=== PATIENT | male | born 1955 | race Caucasian/White ===

== ENCOUNTER 2020-01-19 23:57 | Emergency (ER) | payer OTHER, MEDICAID, SELFPAY ==
[2020-01-20] VITALS (27 sets, daily range): BP systolic 141–165; BP diastolic 78–120; PULSE 85–96; RESP 14–33; TEMP 37.1; O2SAT 88–97; BMI 32.5
--- NOTE | 2020-01-20 00:17 | DI.RAD.S_ITS ---
PROCEDURE: XR CHEST 1V INDICATIONS: Dyspnea TECHNIQUE: One view of the chest was acquired. COMPARISON: [facility], , CHEST FOR PICC PLACEMENT, 06/18/2015, 19:09. FINDINGS: Surgical changes and devices: Redemonstration of posterior fusion hardware of the mid thoracic spine. Lungs and pleura: Diffuse interstitial prominence as before. There is a large consolidation involving the right midlung zone. Small right pleural effusion. Mild streaky bibasilar opacities. No pneumothorax. Mediastinum: The cardiomediastinal contours remain stable. Heart size is normal. Bones and chest wall: No suspicious bony lesions. Overlying soft tissues appear unremarkable. 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 IMPRESSION: Large right midlung zone consolidation likely related to pneumonia. Small right pleural effusion. Recommend follow up chest radiograph 4-6 weeks after treatment to document resolution of findings and/or return to baseline examination. Dictated by: Gregory Hardwick M.D. on 01/20/2020 at 7:36 Approved by: Gregory Hardwick M.D. on 01/20/2020 at 7:39
[2020-01-20] MEDS: ALBUTEROL HFA 60 PUFF/8 GM INH INH (00:36)
--- NOTE | 2020-01-20 00:39 | ED.SOB ---
HPI - SOB/Dyspnea General Chief Complaint: Shortness of Breath/Dyspnea Stated Complaint: shortness of breath approx 2 wks/yellow mucus Time Seen by Provider: 01/20/20 00:04 Source: patient History of Present Illness HPI Narrative: Patient complains slow onset of dyspnea past 2 weeks with productive yellow cough. Denies denies any chest pain. Patient states his leg edema bilaterally is at baseline. Denies any history of CHF. Has history of COPD. No longer smokes. Is not on oxygen at home. Home breathing treatments not helping. Denies any sick contacts. Does not have a provider locally. Patient states history of thyroid problems. 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 Complaint: shortness of breath and cough Related Data Home Medications Medication Instructions Recorded Confirmed [HEPATITIC SLOTHOPINE] #0 10/17/17 Previous Rx's Medication Instructions Recorded hydroxyzine HCl 0 mg PO Q4HP PRN #10 tab 02/23/16 lisinopril 40 mg PO QDAY #30 tab 09/29/16 zolpidem 10 mg PO HS PRN #30 tab 09/29/16 levothyroxine [Synthroid] 75 mcg PO QAM #30 tab 10/20/16 levothyroxine [Synthroid] 150 mcg PO QAM #30 tab 10/20/16 liothyronine [Cytomel] 25 mcg PO QAM #30 tab 10/20/16 permethrin 1 loi TOPICAL X1 #60 gm 10/17/17 Allergies Allergy/AdvReac Type Severity Reaction Status Date / Time No Known Drug Allergies Allergy Verified 01/20/20 04:30 Review of Systems Review of Systems Narrative: GENERAL: Denies chills, fatigue, malaise, fever, sweats. HEENT: Denies sinus pain, ear pain, sore throat, difficulty swallowing, dizziness. RESPIRATORY: Complains of productive cough/dyspnea/wheezing CARDIOVASCULAR: Denies chest pain, palpitations, orthopnea, edema, GASTROINTESTINAL: Denies nausea, vomiting, abdominal pain, diarrhea, constipation, melena. : Denies dysuria, frequency, incontinence, hematuria, urinary retention. MUSCULOSKELETAL: denies weakness, joint pain, or bony pain SKIN: Denies rash, skin lesions, or other NEUROLOGIC: Denies weakness, headache, numbness, change in speech, confusion, seizures, incoordination. PSYCHIATRIC: No concerning psychosocial issues. ROS Unobtainable: All systems reviewed & are unremarkable except as noted in HPI and below Exam Narrative Exam Narrative: GENERAL: patient appears stated age. Well-nourished, well-developed patient, in no distress, not toxic HEAD: Atraumatic. Normocephalic. EYES: Pupils equal round and reactive. Extraocular motions intact. No scleral icterus. No injection or drainage. ENT: Nose without bleeding, purulent drainage. Throat without erythema, tonsillar hypertrophy or exudate. Airway patent. NECK: Trachea midline. Non tender CARDIOVASCULAR: Regular rate and rhythm without murmurs, gallops, or rubs. RESPIRATORY: Speaks nearly full sentences, has bilateral basilar wheezes and rhonchi, has productive cough GASTROINTESTINAL: Abdomen soft, non-tender, nondistended. EXTREMITIES: No edema or joint tenderness. BACK: Nontender without deformity or crepitance. No flank tenderness. NEURO: AOx3. SKIN: No rash or erythema of visible areas Initial Vital Signs Initial Vital Signs: Vital Signs Pulse Rate 91 H 01/20/20 00:17 Respiratory Rate 16 01/20/20 00:17 Pulse Oximetry 96 01/20/20 00:17 Course Course Course Narrative: No new complaints. Feeling better after inhaler Orders Ordered: ED Orders 01/20/20 00:17 XR chest 1V Stat 01/20/20 00:22 EKG-12 Lead Stat 01/20/20 00:24 Complete Blood Count AUTO DIFF Stat Comprehensive Metabolic Panel Stat NT-proBNP (BNP-Adult 18+) Stat Partial Thromboplastin Time Stat Procalcitonin Stat Prothrombin Time INR Stat Sputum Culture Stat Thyroid Stimulating Hormone Stat Troponin & CK Cardiac Panel Stat 01/20/20 00:57 Blood Culture Stat 01/20/20 01:00 Urinalysis and Microscopic Stat 01/20/20 01:53 CT chest wo con Stat Discontinued Medications Albuterol (Ventolin Hfa) 4 puff INH NOW ONE Stop: 01/20/20 00:29 Last Admin: 01/20/20 00:36 Dose: 4 puff Documented by: IQRA Sodium Chloride (Normal Saline 0.9%) 1,000 mls @ 1,000 mls/hr IV BOLUS PRN PRN Reason: Fluid replacement Methylprednisolone (Solu-Medrol 125 Mg Vial) 125 mg IV NOW ONE Stop: 01/20/20 04:30 Last Admin: 01/20/20 04:34 Dose: 125 mg Documented by: JOYCE Morphine Sulfate (Morphine) 4 mg IV NOW ONE Stop: 01/20/20 04:22 Last Admin: 01/20/20 04:35 Dose: 4 mg Documented by: JOYCE Ondansetron HCl (Zofran) 4 mg IV NOW ONE Stop: 01/20/20 04:22 Last Admin: 01/20/20 04:34 Dose: 4 mg Documented by: JOYCE Reevaluation(s) Reevaluation #1: Resting comfortably, sleeping, awakens easily to review results Time: 03:09 Consultations Consultation #1: Spoke with Dr. Gaurang Huynh, [facility] internal medicine, at this time they are at capacity for admissions. Patient is hemodynamically stable and would be appropriate to admit here for COPD exacerbation, in the morning can do telemedicine conference call with Pulmonary group, patient would need bronchoscopy with biopsy which they can arrange with our hospitalist to transfer tomorrow Time: 04:17 Consultation #2: Spoke with our hospitalist, TYING [employer] MACHINE OPERATOR Una Swanson, my discussion with Dr. Huynh, she discharge patient to go [facility], I will make phone calls to their facility and she will accept patient if they are unable to provide services Time: 04:18 Consultation #3: Spoke with [facility], hospitalist, Dr. Corea, he will gladly accept the patient, not need to contact Oncology tonight, he is aware of the TSH level we found tonight Time: 04:29 Vital Signs Vital signs: Vital Signs - 8 hr 01/20/20 00:17 01/20/20 00:20 01/20/20 00:30 Temperature Pulse Rate 91 H 91 H 96 H Respiratory Rate 16 29 H 21 Blood Pressure 163/120 H Pulse Oximetry 96 96 96 01/20/20 00:34 01/20/20 00:37 01/20/20 00:40 Temperature 98.8 F Pulse Rate 96 H 90 90 Respiratory Rate 24 20 14 Blood Pressure 163/120 H Pulse Oximetry 97 95 95 01/20/20 00:50 01/20/20 01:00 01/20/20 01:10 Temperature Pulse Rate 88 95 H 87 Respiratory Rate 18 23 20 Blood Pressure Pulse Oximetry 93 95 94 01/20/20 01:15 01/20/20 01:30 01/20/20 01:45 Temperature Pulse Rate 91 H 86 85 Respiratory Rate 28 H 18 22 Blood Pressure Pulse Oximetry 96 94 92 01/20/20 02:00 01/20/20 03:08 01/20/20 03:10 Temperature Pulse Rate 87 88 86 Respiratory Rate 18 23 14 Blood Pressure 165/97 H Pulse Oximetry 90 L 01/20/20 03:20 01/20/20 03:30 01/20/20 03:40 Temperature Pulse Rate 92 H 91 H 91 H Respiratory Rate 33 H 24 24 Blood Pressure 159/96 H Pulse Oximetry 01/20/20 03:50 01/20/20 04:00 01/20/20 04:10 Temperature Pulse Rate 91 H 91 H 92 H Respiratory Rate 29 H 21 Blood Pressure 153/87 H Pulse Oximetry 01/20/20 04:20 01/20/20 04:30 01/20/20 04:40 Temperature Pulse Rate 92 H 90 93 H Respiratory Rate Blood Pressure 149/85 H Pulse Oximetry 94 92 91 01/20/20 04:50 01/20/20 05:00 01/20/20 05:10 Temperature Pulse Rate 89 88 90 Respiratory Rate Blood Pressure 141/78 H Pulse Oximetry 89 L 88 L 89 L MDM - SOB/Dyspnea Differential Diagnosis Differential diagnosis: Likely acute exacerbation of chronic obstructive airways disease, congestive heart failure and community acquired pneumonia Lab Data Attestation: I reviewed the patient's lab results. Result diagrams: 01/20/20 00:24 01/20/20 00:24 Labs: Lab Results 01/20/20 01/20/20 01/20/20 Range/Units 00:23 00:24 00:24 WBC 9.3 (4.5-11.0) X10^3/uL RBC 3.38 L (4.5-5.9) X10^6/uL Hgb 8.9 L (13.5-17.5) g/dL Hct 26.9 L (41-53) % MCV 79.6 L (80-100) fL MCH 26.4 (26-34) PG MCHC 33.2 (30-36) % RDW 19.8 H (11.6-14.8) % Plt Count 328 (150-400) X10^3/uL Neut % (Auto) 68.4 (50-75) % Lymph % (Auto) 16.6 L (25-40) % Bland % (Auto) 11.0 (3-14) % Eos % (Auto) 2.9 (2-4) % Baso % (Auto) 1.1 (0-2) % Neut # (Auto) 6400 (0363-2052) /uL Lymph # (Auto) 1500 (1939-9237) /uL Bland # (Auto) 1000 H (0-900) /uL Eos # (Auto) 300 (0-450) /uL Baso # (Auto) 100 (0-100) /uL PT 11.7 (10.1-12.7) SECONDS INR 1.0 (0.9-1.3) APTT 33 (26.4-36.2) SECONDS Sodium (137-145) mmol/L Potassium (3.4-5.1) mmol/L Chloride (98-107) mmol/L Carbon Dioxide (22-32) mmol/L BUN (9-20) mg/dL Creatinine (0.66-1.25) mg/dL Estimated GFR (>60) mL/min BUN/Creatinine Ratio (6-22) Glucose (80-110) mg/dL Calcium (8.4-10.2) mg/dL Total Bilirubin (0.2-1.3) mg/dL AST (17-59) IU/L ALT (<50) IU/L Alkaline Phosphatase (38-126) U/L Total Creatine Kinase (55-170) U/L CK-MB (CK-2) CK-MB (CK-2) Rel Index Troponin I (0.01-0.034) ng/mL NT-Pro-B Natriuret Pep (<125) pg/mL Total Protein (6.3-8.2) g/dL Albumin (3.5-5.0) g/dL Globulin (1.7-4.1) g/dL Albumin/Globulin Ratio (1.0-2.8) Procalcitonin (<0.5) ng/mL TSH (0.47-4.68) uIU/mL Urine Color Urine Appearance Urine pH (4.5-8.0) Ur Specific [place] (1.000-1.035) Urine Protein (Negative) Urine Glucose (UA) (Negative) g/dL Urine Ketones (NEGATIVE) Urine Occult Blood (Negative) Urine Nitrate (Negative) Urine Bilirubin (NEGATIVE) Urine Urobilinogen (0.2) E.U./dL Ur Leukocyte Esterase (NEGATIVE) Urine RBC (0-5/HPF) Urine WBC (0-5/HPF) Urine Bacteria (None) Ur Culture Indicated? Micro UA Comment COVID-19 PCR Negative (Negative) 01/20/20 01/20/20 01/20/20 Range/Units 00:24 00:24 00:24 WBC (4.5-11.0) X10^3/uL RBC (4.5-5.9) X10^6/uL Hgb (13.5-17.5) g/dL Hct (41-53) % MCV (80-100) fL MCH (26-34) PG MCHC (30-36) % RDW (11.6-14.8) % Plt Count (150-400) X10^3/uL Neut % (Auto) (50-75) % Lymph % (Auto) (25-40) % Bland % (Auto) (3-14) % Eos % (Auto) (2-4) % Baso % (Auto) (0-2) % Neut # (Auto) (7087-7710) /uL Lymph # (Auto) (6767-0671) /uL Bland # (Auto) (0-900) /uL Eos # (Auto) (0-450) /uL Baso # (Auto) (0-100) /uL PT (10.1-12.7) SECONDS INR (0.9-1.3) APTT (26.4-36.2) SECONDS Sodium 133 L (137-145) mmol/L Potassium 4.4 (3.4-5.1) mmol/L Chloride 98 (98-107) mmol/L Carbon Dioxide 24 (22-32) mmol/L BUN 23 H (9-20) mg/dL Creatinine 1.15 (0.66-1.25) mg/dL Estimated GFR > 60.0 (>60) mL/min BUN/Creatinine Ratio 20.0 (6-22) Glucose 107 (80-110) mg/dL Calcium 9.0 (8.4-10.2) mg/dL Total Bilirubin 0.4 (0.2-1.3) mg/dL AST 46 (17-59) IU/L ALT 22 (<50) IU/L Alkaline Phosphatase 105 (38-126) U/L Total Creatine Kinase 96 (55-170) U/L CK-MB (CK-2) TNP CK-MB (CK-2) Rel Index TNP Troponin I < 0.012 (0.01-0.034) ng/mL NT-Pro-B Natriuret Pep 378 H (<125) pg/mL Total Protein 8.5 H (6.3-8.2) g/dL Albumin 4.0 (3.5-5.0) g/dL Globulin 4.5 H (1.7-4.1) g/dL Albumin/Globulin Ratio 0.9 L (1.0-2.8) Procalcitonin 0.08 (<0.5) ng/mL TSH (0.47-4.68) uIU/mL Urine Color Urine Appearance Urine pH (4.5-8.0) Ur Specific [place] (1.000-1.035) Urine Protein (Negative) Urine Glucose (UA) (Negative) g/dL Urine Ketones (NEGATIVE) Urine Occult Blood (Negative) Urine Nitrate (Negative) Urine Bilirubin (NEGATIVE) Urine Urobilinogen (0.2) E.U./dL Ur Leukocyte Esterase (NEGATIVE) Urine RBC (0-5/HPF) Urine WBC (0-5/HPF) Urine Bacteria (None) Ur Culture Indicated? Micro UA Comment COVID-19 PCR (Negative) 01/20/20 01/20/20 Range/Units 00:24 01:00 WBC (4.5-11.0) X10^3/uL RBC (4.5-5.9) X10^6/uL Hgb (13.5-17.5) g/dL Hct (41-53) % MCV (80-100) fL MCH (26-34) PG MCHC (30-36) % RDW (11.6-14.8) % Plt Count (150-400) X10^3/uL Neut % (Auto) (50-75) % Lymph % (Auto) (25-40) % Bland % (Auto) (3-14) % Eos % (Auto) (2-4) % Baso % (Auto) (0-2) % Neut # (Auto) (7337-0326) /uL Lymph # (Auto) (0773-7922) /uL Bland # (Auto) (0-900) /uL Eos # (Auto) (0-450) /uL Baso # (Auto) (0-100) /uL PT (10.1-12.7) SECONDS INR (0.9-1.3) APTT (26.4-36.2) SECONDS Sodium (137-145) mmol/L Potassium (3.4-5.1) mmol/L Chloride (98-107) mmol/L Carbon Dioxide (22-32) mmol/L BUN (9-20) mg/dL Creatinine (0.66-1.25) mg/dL Estimated GFR (>60) mL/min BUN/Creatinine Ratio (6-22) Glucose (80-110) mg/dL Calcium (8.4-10.2) mg/dL Total Bilirubin (0.2-1.3) mg/dL AST (17-59) IU/L ALT (<50) IU/L Alkaline Phosphatase (38-126) U/L Total Creatine Kinase (55-170) U/L CK-MB (CK-2) CK-MB (CK-2) Rel Index Troponin I (0.01-0.034) ng/mL NT-Pro-B Natriuret Pep (<125) pg/mL Total Protein (6.3-8.2) g/dL Albumin (3.5-5.0) g/dL Globulin (1.7-4.1) g/dL Albumin/Globulin Ratio (1.0-2.8) Procalcitonin (<0.5) ng/mL TSH 68.5 H (0.47-4.68) uIU/mL Urine Color Yellow Urine Appearance Clear Urine pH 6.5 (4.5-8.0) Ur Specific [place] <=1.005 (1.000-1.035) Urine Protein Negative (Negative) Urine Glucose (UA) Negative (Negative) g/dL Urine Ketones Negative (NEGATIVE) Urine Occult Blood Negative (Negative) Urine Nitrate Negative (Negative) Urine Bilirubin Negative (NEGATIVE) Urine Urobilinogen 0.2 (0.2) E.U./dL Ur Leukocyte Esterase Negative (NEGATIVE) Urine RBC None seen (0-5/HPF) Urine WBC None seen (0-5/HPF) Urine Bacteria None seen (None) Ur Culture Indicated? Cult not indicated Micro UA Comment Microscopic normal COVID-19 PCR (Negative) Imaging Data Chest x-ray: Attestation: I personally reviewed and interpreted this imaging study as follows: My Impression: Right hilar mass CT scan - chest: Radiologist's Impression: CT scan chest without contrast results faxed to the department, large right perihilar mass like density. 9 x 10 x 6 cm Consider malignancy. Recommend close follow-up ECG Data Attestation: I personally reviewed and interpreted this ECG as follows: Interpretation: Sinus rhythm, P waves are noted, ventricular rate 90, no ST elevation or depression MDM Narrative Medical decision making narrative: COPD exacerbation with new mass compared to CT scan and x-ray in 2014. Patient will be transferred to [facility], I spoke with hospitalist here, Gissel Swanson, recommend patient be transferred. I spoke with the household assistant a [facility], she states patient's with new onset usually gets transferred to [facility] from their facility Discharge Plan Departure Patient Disposition: [facility] Clinical Impression: Lung mass, Acute exacerbation of chronic obstructive pulmonary disease Discharge Date/Time: 01/20/20 05:23 Prescriptions: No Action hydroxyzine HCl 25 MG tablet 0 mg PO Q4HP PRNQty: 10 RF: 0 lisinopril 40 MG tablet 40 mg PO QDAY Qty: 30 RF: 0 zolpidem 10 MG tablet 10 mg PO HS PRNQty: 30 RF: 0 liothyronine [Cytomel] 25 MCG tablet 25 mcg PO QAM Qty: 30 RF: 0 levothyroxine [Synthroid] 75 MCG tablet 75 mcg PO QAM Qty: 30 RF: 0 levothyroxine [Synthroid] 150 MCG tablet 150 mcg PO QAM Qty: 30 RF: 0 [HEPATITIC SLOTHOPINE] Qty: 0 RF: 0 permethrin 5 % cream 1 loi Topical X1 Qty: 60 RF: 0 Referrals: Ken Campa MD [Primary Care Provider] -
[2020-01-20 00:52] LABS: Add Manual Diff / Slide Review NO; Basophils Absolute Auto 100 /uL (0-100); Basophils Percent Auto 1.1 % (0-2); Eosinophils Absolute Auto 300 /uL (0-450); Eosinophils Percent Auto 2.9 % (2-4); Hematocrit 26.9 % (41-53); Hemoglobin 8.9 g/dL (13.5-17.5); Lymphocytes Absolute Auto 1500 /uL (1100-4500); Lymphocytes Percent Auto 16.6 % (25-40); Mean Corpuscular HGB Conc 33.2 % (30-36); Mean Corpuscular Hemoglobin 26.4 PG (26-34); Mean Corpuscular Volume 79.6 fL (80-100); Monocytes Absolute Auto 1000 /uL (0-900); Neutrophils Absolute Auto 6400 /uL (1500-7000); Neutrophils Percent Auto 68.4 % (50-75); Platelet Count 328 X10^3/uL (150-400); Prothrombin Time 11.7 SECONDS (10.1-12.7); Red Blood Cell Count 3.38 X10^6/uL (4.5-5.9); Red Cell Distribution Width 19.8 % (11.6-14.8); White Blood Cell Count 9.3 X10^3/uL (4.5-11.0)
[2020-01-20 00:54] LABS: PTT Partial Thromboplastin Tim 33 SECONDS (26.4-36.2)
[2020-01-20 00:56] LABS: Alanine Aminotransferase 22 IU/L (<50); Albumin Globulin Ratio 0.9 (1.0-2.8); Alkaline Phosphatase 105 U/L (38-126); Aspartate Aminotransferase 46 IU/L (17-59); Bilirubin Total 0.4 mg/dL (0.2-1.3); Blood Urea Nitrogen 23 mg/dL (9-20); Carbon Dioxide 24 mmol/L (22-32); Chloride 98 mmol/L (98-107); Creatine Kinase 96 U/L (55-170); Estimated Glomerular Filt Rate > 60.0 mL/min (>60); Globulin 4.5 g/dL (1.7-4.1); Glucose 107 mg/dL (80-110); HEMOLYSIS 48 (0-50); Potassium 4.4 mmol/L (3.4-5.1); Sodium 133 mmol/L (137-145); Total Protein 8.5 g/dL (6.3-8.2)
[2020-01-20 01:05] LABS: NT-proBNP (BNP-Adult 18+) 378 pg/mL (<125)
[2020-01-20 01:08] LABS: Troponin I < 0.012 ng/mL (0.01-0.034)
[2020-01-20 01:13] LABS: Procalcitonin 0.08 ng/mL (<0.5)
[2020-01-20 01:27] LABS: Thyroid Stimulating Hormone 68.5 uIU/mL (0.47-4.68)
[2020-01-20 01:47] LABS: COVID19 -Nasal RAPID Negative (Negative)
--- NOTE | 2020-01-20 01:53 | DI.CT.S_ITS ---
PROCEDURE: CT CHEST WO CON INDICATIONS: Dyspnea TECHNIQUE: Noncontrast 5 mm thick sections acquired from the pulmonary apices to the posterior costophrenic angles. 1 mm lung window, 5 mm thick coronal and sagittal and 7 mm axial MIP reformats were then acquired. For radiation dose reduction, the following was used: automated exposure control, adjustment of mA and/or kV according to patient size. COMPARISON: [facility], CT, CHEST/ABD/PEL WITH CONTRAST, 06/18/2015, 15:09. FINDINGS: Image quality: Excellent. Lungs and pleura: No evidence of pneumonia, nor edema. Mild right basilar atelectasis versus pneumonia. There is a large right upper lobe mass in the perihilar location measuring 94 mm, extending to the right hilum. No pleural effusions or pneumothorax. Central and peripheral airways are patent and normal in caliber. Mediastinum: Heart size is enlarged. There is calcification of the coronary vasculature. No pericardial effusion. No mediastinal adenopathy by size criteria. Thoracic aorta and central pulmonary arteries are normal in size. Esophagus is normal in caliber. Large hiatal hernia. Bones and chest wall: No suspicious bony lesions. No vertebral body compression fractures. No axillary or supraclavicular adenopathy by size criteria. Thyroid gland is within normal limits. Abdomen: Visualized upper abdominal solid organs and bowel loops appear normal in the absence of contrast. IMPRESSION: 1. Large right upper lobe mass, consistent with malignancy. 2. Large hiatal hernia. 3. Right basilar atelectasis versus pneumonia. 4. Concordant with preliminary interpretation. Dictated by: Galina Newton M.D. on 01/20/2020 at 8:30 Approved by: Galina Newton M.D. on 01/20/2020 at 8:32
[2020-01-20 03:09] LABS: Bacteria Urine None Seen; RBC Urine None Seen (0-5/HPF); WBC Urine None Seen (0-5/HPF)
[2020-01-20 03:10] LABS: Appearance Urine UA CLEAR; Bilirubin Urine UA NEGATIVE (NEGATIVE); Color Urine UA YELLOW; Glucose Urine UA NEGATIVE (Negative); Ketones Urine UA NEGATIVE (NEGATIVE); Leukocyte Esterase Urine UA NEGATIVE (NEGATIVE); Nitrite Urine UA NEGATIVE (Negative); Occult Blood Urine UA NEGATIVE (Negative); Protein Urine UA NEGATIVE (Negative); Specific Gravity Urine UA <=1.005 (1.000-1.035); Urobilinogen Urine UA 0.2 E.U./dL (0.2); pH Urine UA 6.5 (4.5-8.0)
[2020-01-20 03:11] LABS: Culture Indicated Urine Cult Not Indicated; Urine Comments Microscopic Normal
--- NOTE | 2020-01-20 03:25 | PC.NURSE ---
Pt given snack with OK from Dr Lobato
--- NOTE | 2020-01-20 04:27 | PC.NURSE ---
Pt c/o PEDRO pain 05/01, Dr Lobato notified, orders received for morphine and zofran.
[2020-01-20] MEDS: methylPREDNISolone 125 MG/2 ML VIAL IV (04:34)
[2020-01-20] MEDS: ONDANSETRON 4 MG/2 ML INJ IV (04:34)
[2020-01-20] MEDS: MORPHINE 4 MG/ML INJ IV (04:35)
== END 2020-01-20 05:23 | disposition short-term general hospital (02) ==
PROVIDERS: Emergency Provider Emergency Medicine; Family Provider Internal Medicine; PCP Family Medicine
DX: J44.1 Chronic obstructive pulmonary disease with (acute) exacerbation (principal); R91.8 Other nonspecific abnormal finding of lung field
CPT/HCPCS: 36415; 71045; 71250; 80053; 81001; 82550; 83880; 84145; 84443; 84484; 85025; 85610; 85730; 87040; 87070; 87205; 87635; 93005; 94640; 96374; 96375; 99285; J2270; J2405; J2930

== ENCOUNTER 2022-01-23 03:00 | Emergency (ER) | payer OTHER, MEDICAID, SELFPAY ==
[2022-01-23] VITALS (14 sets, daily range): BP systolic 122–209; BP diastolic 86–108; PULSE 59–69; RESP 11–23; TEMP 36.2–36.3; O2SAT 92–99
--- NOTE | 2022-01-23 03:25 | DI.CT.S_ITS ---
PROCEDURE: CT HEAD/BRAIN WO CON INDICATIONS: falling asleep TECHNIQUE: Noncontrast 4.5 mm thick angled axial sections acquired from the foramen magnum to the vertex, with coronal and sagittal reformats. For radiation dose reduction, the following was used: automated exposure control, adjustment of mA and/or kV according to patient size. COMPARISON: [facility], CT, HEAD WITHOUT CONTRAST, 06/18/2015, 15:09. FINDINGS: Image quality: Excellent. CSF spaces: Basal cisterns are patent. No extra-axial fluid collections. The ventricles are symmetric in size and shape. Brain: No intracranial bleeds or masses. 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 There is cerebral volume loss for age, with resultant ventricular and sulcal prominence. There are periventricular and deep white matter chronic small vessel ischemic changes. There is intracranial internal carotid artery atherosclerosis. Skull and face: Calvarium and visualized facial bones appear intact, without suspicious lesions. Sinuses: Visualized sinuses and mastoids are clear. IMPRESSION: 1. No CT evidence of acute intracranial abnormalities. 2. 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 Mild age related atrophy and mild white matter chronic small vessel ischemic changes. No discrepancies from preliminary reading. Dictated by: Kota Penaloza M.D. on 01/23/2022 at 7:39 Approved by: Kota Penaloza M.D. on 01/23/2022 at 7:40
--- NOTE | 2022-01-23 03:27 | ED_ITS ---
HPI - Altered Mental Status <Chang Florian DO - Last Filed: 01/23/22 19:04> General Chief Complaint: Shortness of Breath/Dyspnea Stated Complaint: falling asleep Time Seen by Provider: 01/23/22 03:10 Source: patient and EMS Mode of arrival: EMS History of Present Illness HPI narrative: 66-year-old male smoker and former IV drug abuser with history of hypertension, hepatitis-C presents by EMS for evaluation of altered mental status. He was at a slot machine at the [facility] and was found to be falling asleep and security activated EMS stating that he was in and out of consciousness. Patient denies any use of illicits other than marijuana and states that it has been quite sometime since he has used anything stronger. EMS reports a rather impressive response to Narcan and also ammonia salts. Patient states that his blood pressures have been elevated and he has not been taking his medication for quite some time. He denies any headache or blurred vision but does state that he gets some tingling in his left arm on occasion. He denies any chest pain and states that he has been short of breath for a while. She has a very poor historian and does not participate in the history or exam very well or willingly. He denies any trauma and has no neck pain. Related Data Home Medications Medication Instructions Recorded Confirmed [HEPATITIC SLOTHOPINE] ##0 10/17/17 Previous Rx's Medication Instructions Recorded hydroxyzine HCl 25 mg tablet 0 mg PO Q4HP PRN #10 tabs 02/23/16 lisinopril 40 mg tablet 40 mg PO QDAY #30 tabs 09/29/16 zolpidem 10 mg tablet 10 mg PO HS PRN #30 tabs 09/29/16 levothyroxine 150 mcg tablet 150 mcg PO QAM #30 tabs 10/20/16 (Synthroid) levothyroxine 75 mcg tablet 75 mcg PO QAM #30 tabs 10/20/16 (Synthroid) liothyronine 25 mcg tablet 25 mcg PO QAM #30 tabs 10/20/16 (Cytomel) permethrin 5 % topical cream 1 loi topical X1 ##60 10/17/17 cephalexin 500 mg capsule 500 mg PO TID #21 caps 01/23/22 Allergies Allergy/AdvReac Type Severity Reaction Status Date / Time No Known Drug Allergies Allergy Verified 01/20/20 04:30 Review of Systems <Chang Florian DO - Last Filed: 01/23/22 19:04> Review of Systems Narrative: GENERAL: Denies chills, fatigue, malaise, fever, sweats. HEENT: Denies sinus pain, ear pain, sore throat, difficulty swallowing, dizziness. RESPIRATORY: See HPI CARDIOVASCULAR: Denies chest pain, palpitations, orthopnea, edema, GASTROINTESTINAL: Denies nausea, vomiting, abdominal pain, diarrhea, constipation, melena. : Denies dysuria, frequency, incontinence, hematuria, urinary retention. MUSCULOSKELETAL: denies weakness, joint pain, or bony pain SKIN: Denies rash, skin lesions, or other NEUROLOGIC: See HPI PSYCHIATRIC: No concerning psychosocial issues. 12 point review of systems is negative except for those stated above Patient History <Chang Florian DO - Last Filed: 01/23/22 19:04> Social History Smoking Status: Current some day smoker Smoking Status: Current some day smoker tobacco type: cigars alcohol intake frequency: 0-2 drinks per day Substance Use Type: marijuana and heroin Exam <Chang Florian DO - Last Filed: 01/23/22 19:04> Narrative Exam Narrative: GENERAL: [66] year old patient appears stated age. Well-developed patient, in mild distress. Awake but slurring his words some. GCS 14 (confused) HEAD: Atraumatic. Normocephalic. EYES: Pupils equal round and reactive. Extraocular motions intact. No scleral icterus. No injection or drainage. ENT: Nose without bleeding, purulent drainage. Throat without erythema, tonsillar hypertrophy or exudate. Airway patent. NECK: Trachea midline. Non tender CARDIOVASCULAR: Regular rate and rhythm without murmurs, gallops, or rubs. RESPIRATORY: Clear to auscultation. Breath sounds equal bilaterally. No wheezes, rales, or rhonchi. GASTROINTESTINAL: Abdomen soft, non-tender, nondistended. EXTREMITIES: pain and redness to RLE, no induration or fluctuance BACK: Nontender without deformity or crepitance. No flank tenderness. NEURO: CNII-XII .grossly in tact SKIN: No rash or erythema of visible areas Initial Vital Signs Initial Vital Signs: Vital Signs Pulse Rate 66 01/23/22 03:10 Respiratory Rate 18 01/23/22 03:10 Blood Pressure 209/108 H 01/23/22 03:10 Pulse Oximetry 99 01/23/22 03:10 Oxygen Delivery Method 01/23/22 03:10 <Neihsa Muse DO - Last Filed: 01/23/22 18:16> Initial Vital Signs Initial Vital Signs: Vital Signs Pulse Rate 66 01/23/22 03:10 Respiratory Rate 18 01/23/22 03:10 Blood Pressure 209/108 H 01/23/22 03:10 Pulse Oximetry 99 01/23/22 03:10 Oxygen Delivery Method 01/23/22 03:10 Course <Chang Florian, DO - Last Filed: 01/23/22 19:04> Orders Ordered: ED Orders 01/23/22 03:25 CT head/brain wo con Stat 01/23/22 04:04 Acetaminophen Stat CBC Auto Diff [Complete Blood Count AUTO DIFF] Stat CMP [Comprehensive Metabolic Panel] Stat Ethanol (ETOH) Stat Salicylate Stat 01/23/22 05:55 Urine Drug Screen, Rapid Stat Reevaluation(s) Reevaluation #1: patient continues to improve. He is speaking clearly and states he has not used any opioids in 3 days. He states he intends to get to [place] today and would prefer we send an Rx to in [place] Vital Signs Vital signs: Vital Signs - 8 hr 01/23/22 03:10 01/23/22 03:24 01/23/22 03:30 Temperature Pulse Rate 66 69 66 Respiratory Rate 18 23 11 L Blood Pressure 209/108 H Pulse Oximetry 99 96 98 Oxygen Delivery Method Room Air 01/23/22 03:38 01/23/22 03:38 01/23/22 03:58 Temperature Pulse Rate 66 Respiratory Rate 16 Blood Pressure 183/98 H 187/105 H Pulse Oximetry 96 Oxygen Delivery Method 01/23/22 03:58 01/23/22 04:00 01/23/22 04:00 Temperature Pulse Rate 61 59 L Respiratory Rate 11 L 11 L Blood Pressure 182/100 H Pulse Oximetry 98 99 Oxygen Delivery Method 01/23/22 04:30 01/23/22 04:31 01/23/22 04:31 Temperature Pulse Rate 65 65 Respiratory Rate 12 11 L Blood Pressure 168/92 H Pulse Oximetry 95 95 Oxygen Delivery Method 01/23/22 05:00 01/23/22 05:01 01/23/22 05:01 Temperature Pulse Rate 66 66 Respiratory Rate 11 L 17 Blood Pressure 162/89 H Pulse Oximetry 92 94 Oxygen Delivery Method Room Air 01/23/22 05:30 01/23/22 05:31 01/23/22 07:43 Temperature 97.4 F L Pulse Rate 64 64 Respiratory Rate 17 Blood Pressure Pulse Oximetry 92 Oxygen Delivery Method <Neisha Muse, DO - Last Filed: 01/23/22 18:16> Orders Ordered: ED Orders 01/23/22 03:25 CT head/brain wo con Stat 01/23/22 04:04 Acetaminophen Stat CBC Auto Diff [Complete Blood Count AUTO DIFF] Stat CMP [Comprehensive Metabolic Panel] Stat Ethanol (ETOH) Stat Salicylate Stat 01/23/22 05:55 Urine Drug Screen, Rapid Stat Vital Signs Vital signs: Vital Signs - 8 hr 01/23/22 03:10 01/23/22 03:24 01/23/22 03:30 Temperature Pulse Rate 66 69 66 Respiratory Rate 18 23 11 L Blood Pressure 209/108 H Pulse Oximetry 99 96 98 Oxygen Delivery Method Room Air 01/23/22 03:38 01/23/22 03:38 01/23/22 03:58 Temperature Pulse Rate 66 Respiratory Rate 16 Blood Pressure 183/98 H 187/105 H Pulse Oximetry 96 Oxygen Delivery Method 01/23/22 03:58 01/23/22 04:00 01/23/22 04:00 Temperature Pulse Rate 61 59 L Respiratory Rate 11 L 11 L Blood Pressure 182/100 H Pulse Oximetry 98 99 Oxygen Delivery Method 01/23/22 04:30 01/23/22 04:31 01/23/22 04:31 Temperature Pulse Rate 65 65 Respiratory Rate 12 11 L Blood Pressure 168/92 H Pulse Oximetry 95 95 Oxygen Delivery Method 01/23/22 05:00 01/23/22 05:01 01/23/22 05:01 Temperature Pulse Rate 66 66 Respiratory Rate 11 L 17 Blood Pressure 162/89 H Pulse Oximetry 92 94 Oxygen Delivery Method Room Air 01/23/22 05:30 01/23/22 05:31 01/23/22 07:43 Temperature 97.4 F L Pulse Rate 64 64 Respiratory Rate 17 Blood Pressure Pulse Oximetry 92 Oxygen Delivery Method MDM - Altered Mental Status <Changholden Florian DO - Last Filed: 01/23/22 19:04> Lab Data Result diagrams: 01/23/22 04:04 01/23/22 04:04 Labs: Lab Results 01/23/22 01/23/22 01/23/22 Range/Units 04:04 04:04 05:55 WBC 5.1 (4.5-11.0) X10^3/uL RBC 4.37 L (4.5-5.9) X10^6/uL Hgb 12.1 L (13.5-17.5) g/dL Hct 36.3 L (41-53) % MCV 83.0 (80-100) fL MCH 27.8 (26-34) PG MCHC 33.5 (30-36) % RDW 17.2 H (11.6-14.8) % Plt Count 152 (150-400) X10^3/uL Neut % (Auto) 65.3 (50-75) % Lymph % (Auto) 19.5 L (25-40) % [place] % (Auto) 10.4 (3-14) % Eos % (Auto) 3.6 (2-4) % Baso % (Auto) 1.2 (0-2) % Neut # (Auto) 3300 (5873-8338) /uL Lymph # (Auto) 1000 L (4754-9107) /uL [place] # (Auto) 500 (0-900) /uL Eos # (Auto) 200 (0-450) /uL Baso # (Auto) 100 (0-100) /uL Sodium 138 (137-145) mmol/L Potassium 3.9 (3.4-5.1) mmol/L Chloride 102 (98-107) mmol/L Carbon Dioxide 29 (22-32) mmol/L BUN 20 (9-20) mg/dL Creatinine 1.51 H (0.66-1.25) mg/dL Estimated GFR 51 L (>60) mL/min BUN/Creatinine Ratio 13.2 (6-22) Glucose 100 (80-110) mg/dL Calcium 9.0 (8.4-10.2) mg/dL Total Bilirubin 0.4 (0.2-1.3) mg/dL AST 51 (17-59) IU/L ALT 31 (<50) IU/L Alkaline Phosphatase 107 (38-126) U/L Total Protein 8.2 (6.3-8.2) g/dL Albumin 4.0 (3.5-5.0) g/dL Globulin 4.2 H (1.7-4.1) g/dL Albumin/Globulin Ratio 1.0 (1.0-2.8) Salicylates < 1.0 (<20) mg/dL U Opiates 300ng/mL cut Positive H (Negative) Ur Oxycodone Screen Negative (Negative) Urine Methadone Screen Negative (Negative) Acetaminophen < 10 (10-30) ug/mL Ur Barbiturates Screen Negative (Negative) U Tricyclic Antidepress Negative (Negative) Ur Phencyclidine Scrn Negative (Negative) Ur Amphetamines Screen Positive H (Negative) U Methamphetamines Scrn Positive H (Negative) Ur MDMA Scrn (Ecstasy) Positive H (Negative) U Benzodiazepines Scrn Negative (Negative) Urine Cocaine Screen Negative (Negative) U Marijuana (THC) Screen Negative (Negative) Ethyl Alcohol < 10 ( - 10) mg/dL <Neisha Muse, DO - Last Filed: 01/23/22 18:16> Lab Data Labs: Lab Results 01/23/22 01/23/22 01/23/22 Range/Units 04:04 04:04 05:55 WBC 5.1 (4.5-11.0) X10^3/uL RBC 4.37 L (4.5-5.9) X10^6/uL Hgb 12.1 L (13.5-17.5) g/dL Hct 36.3 L (41-53) % MCV 83.0 (80-100) fL MCH 27.8 (26-34) PG MCHC 33.5 (30-36) % RDW 17.2 H (11.6-14.8) % Plt Count 152 (150-400) X10^3/uL Neut % (Auto) 65.3 (50-75) % Lymph % (Auto) 19.5 L (25-40) % [place] % (Auto) 10.4 (3-14) % Eos % (Auto) 3.6 (2-4) % Baso % (Auto) 1.2 (0-2) % Neut # (Auto) 3300 (7687-9405) /uL Lymph # (Auto) 1000 L (9425-1113) /uL [place] # (Auto) 500 (0-900) /uL Eos # (Auto) 200 (0-450) /uL Baso # (Auto) 100 (0-100) /uL Sodium 138 (137-145) mmol/L Potassium 3.9 (3.4-5.1) mmol/L Chloride 102 (98-107) mmol/L Carbon Dioxide 29 (22-32) mmol/L BUN 20 (9-20) mg/dL Creatinine 1.51 H (0.66-1.25) mg/dL Estimated GFR 51 L (>60) mL/min BUN/Creatinine Ratio 13.2 (6-22) Glucose 100 (80-110) mg/dL Calcium 9.0 (8.4-10.2) mg/dL Total Bilirubin 0.4 (0.2-1.3) mg/dL AST 51 (17-59) IU/L ALT 31 (<50) IU/L Alkaline Phosphatase 107 (38-126) U/L Total Protein 8.2 (6.3-8.2) g/dL Albumin 4.0 (3.5-5.0) g/dL Globulin 4.2 H (1.7-4.1) g/dL Albumin/Globulin Ratio 1.0 (1.0-2.8) Salicylates < 1.0 (<20) mg/dL U Opiates 300ng/mL cut Positive H (Negative) Ur Oxycodone Screen Negative (Negative) Urine Methadone Screen Negative (Negative) Acetaminophen < 10 (10-30) ug/mL Ur Barbiturates Screen Negative (Negative) U Tricyclic Antidepress Negative (Negative) Ur Phencyclidine Scrn Negative (Negative) Ur Amphetamines Screen Positive H (Negative) U Methamphetamines Scrn Positive H (Negative) Ur MDMA Scrn (Ecstasy) Positive H (Negative) U Benzodiazepines Scrn Negative (Negative) Urine Cocaine Screen Negative (Negative) U Marijuana (THC) Screen Negative (Negative) Ethyl Alcohol < 10 ( - 10) mg/dL Imaging Data CT scan - head: Radiologist's Impression: CT Scan Report Signed Patient: Matthew Toledo MR#: [id number] : 1955 Acct:[id number] Age/Sex: 66 / M Date of Service: 01/23/22 Loc: ED Accession Number: [id number] ?? Procedure: CT head/brain wo con Ordering Provider: Chang Florian D.O. PROCEDURE:? CT HEAD/BRAIN WO CON ? INDICATIONS:? falling asleep ? TECHNIQUE:? Noncontrast 4.5 mm thick angled axial sections acquired from the foramen magnum to the vertex, with coronal and sagittal reformats.? For radiation dose reduction, the following was used:? automated exposure control, adjustment of mA and/or kV according to p atient size.? ? COMPARISON:[facility], CT, HEAD WITHOUT CONTRAST, 06/18/2015, 15:09. ? FINDINGS:? Image quality:? Excellent.? ? CSF spaces:? Basal cisterns are patent.? No extra-axial fluid collections.? The ventricles are symmetric in size and shape.? ? Brain:? No intracranial bleeds or masses.? 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 There is cerebral volume loss for age, with resultant ventricular and sulcal prominence.? There are periventricular and deep white matter chronic small vessel ischemic changes.? There is intracranial internal carotid artery atherosclerosis.? ? Skull and face:? Calvarium and visualized facial bones appear intact, without suspicious lesions.? ? Sinuses:? Visualized sinuses and mastoids are clear.? ? IMPRESSION:? 1. No CT evidence of acute intracranial abnormalities. 2. 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 Mild age related atrophy and mild white matter chronic small vessel ischemic changes. ? No discrepancies from preliminary reading.? ? ? Dictated by: Kota Penaloza M.D. on 01/23/2022 at 7:39 ? ? Approved by: Kota Penaloza M.D. on 01/23/2022 at 7:40 ? MDM Narrative Medical decision making narrative: Patient signed out to me by Dr. Florian. Seen evaluated by myself. Been sleeping most of the time. Awake alert oriented he does have some mild erythema on his right leg. No sign of sepsis. He does not quite remember what happened. Drug screen is positive for methamphetamine, opiates and ecstasy. Discussion that his drug use may have played a role in his symptoms night. He is given prescription for Keflex. [facility] is call for him Discharge Plan Departure Patient Disposition: Home Clinical Impression: Cellulitis of leg, right Activity Restrictions/Additional Instructions: *You have been diagnosed with [right leg cellulitis without sign of abscess or sepsis] *What to do: *Please continue to take your regular medications as directed. [ x] New medication prescriptions sent to your pharmacy: [[facility] in [place] ] [ ] New medication written as a paper prescription [ ] No new medications given *Please follow up with your primary care provider in 2-3 days, call for an appointment. Let them know you were seen in the Emergency Department and that we ask that you be seen in follow up. We will electronically transmit a record of today's note if your PCP is in our system *If you do not have a primary care provider please contact the [facility] Resource line at [phone]. They will ask some questions about your medical history and help get you set up with a doctor in the community. *Return to Emergency Department if you should have any new, worsening or concerning symptoms, such as [fever greater than 101 F, shaking chills, worsening pain, persistent vomiting or other bothersome symptoms] Prescriptions: New cephalexin 500 mg capsule 500 mg PO TID Qty: 21 0RF No Action hydroxyzine HCl 25 MG tablet 0 mg PO Q4HP PRNQty: 10 0RF lisinopril 40 MG tablet 40 mg PO QDAY Qty: 30 0RF zolpidem 10 MG tablet 10 mg PO HS PRNQty: 30 0RF liothyronine [Cytomel] 25 MCG tablet 25 mcg PO QAM Qty: 30 0RF levothyroxine [Synthroid] 75 MCG tablet 75 mcg PO QAM Qty: 30 0RF levothyroxine [Synthroid] 150 MCG tablet 150 mcg PO QAM Qty: 30 0RF [HEPATITIC SLOTHOPINE] Qty: 0 permethrin 5 % cream 1 loi Topical X1 Qty: 60 0RF Referrals: Ken Campa MD [Primary Care Provider] - Visit Report Forms: Patient Portal/API
[2022-01-23 04:16] LABS: Add Manual Diff / Slide Review NO; Basophils Absolute Auto 100 /uL (0-100); Basophils Percent Auto 1.2 % (0-2); Eosinophils Absolute Auto 200 /uL (0-450); Eosinophils Percent Auto 3.6 % (2-4); Hematocrit 36.3 % (41-53); Hemoglobin 12.1 g/dL (13.5-17.5); Lymphocytes Absolute Auto 1000 /uL (1100-4500); Lymphocytes Percent Auto 19.5 % (25-40); Mean Corpuscular HGB Conc 33.5 % (30-36); Mean Corpuscular Hemoglobin 27.8 PG (26-34); Monocytes Absolute Auto 500 /uL (0-900); Monocytes Percent Auto 10.4 % (3-14); Neutrophils Absolute Auto 3300 /uL (1500-7000); Neutrophils Percent Auto 65.3 % (50-75); Platelet Count 152 X10^3/uL (150-400); Red Blood Cell Count 4.37 X10^6/uL (4.5-5.9); Red Cell Distribution Width 17.2 % (11.6-14.8); White Blood Cell Count 5.1 X10^3/uL (4.5-11.0)
[2022-01-23 04:26] LABS: Acetaminophen < 10 ug/mL (10-30); Alanine Aminotransferase 31 IU/L (<50); Alkaline Phosphatase 107 U/L (38-126); Aspartate Aminotransferase 51 IU/L (17-59); BUN Creatinine Ratio 13.2 (6-22); Bilirubin Total 0.4 mg/dL (0.2-1.3); Blood Urea Nitrogen 20 mg/dL (9-20); Carbon Dioxide 29 mmol/L (22-32); Chloride 102 mmol/L (98-107); Estimated Glomerular Filt Rate 51 mL/min (>60); Ethanol (ETOH) < 10 mg/dL; Globulin 4.2 g/dL (1.7-4.1); Glucose 100 mg/dL (80-110); HEMOLYSIS < 15 (0-50); Potassium 3.9 mmol/L (3.4-5.1); Salicylate < 1.0 mg/dL (<20); Sodium 138 mmol/L (137-145); Total Protein 8.2 g/dL (6.3-8.2)
[2022-01-23 06:08] LABS: UR Morphine/Opiate cutoff 300 Positive (Negative); Ur Creatinine 50 (Normal); Ur Specific Gravity >1.030 (Normal); Urine Amphetamines Positive (Negative); Urine Barbiturates Negative (Negative); Urine Benzodiazepines Negative (Negative); Urine Cocaine Negative (Negative); Urine MDMA Positive (Negative); Urine Methadone Negative (Negative); Urine Methamphetamines Positive (Negative); Urine Oxycodone Negative (Negative); Urine Phencyclidine Negative (Negative); Urine Tetrahydrocannabinol Negative (Negative); Urine Tricyclic Antidepressant Negative (Negative); Urine pH 5 (Normal)
== END 2022-01-23 10:04 | disposition home or self-care (01) ==
PROVIDERS: Emergency Medicine; Emergency Provider Emergency Medicine; Family Provider Internal Medicine; PCP Family Medicine
DX: L03.115 Cellulitis of right lower limb (principal); R47.81 Slurred speech; R41.82 Altered mental status, unspecified
CPT/HCPCS: 70450; 80053; 80305; 80320; 80329; 85025; 93005; 93010; 99283; 99284; G0480